=== PATIENT | female | born 1995 | race Caucasian/White ===

== ENCOUNTER 2016-11-09 18:30 | Emergency (ER) | payer BC ==
[2015-03-16 07:36] VITALS: BMI 21.3
[2016-11-09 19:07] LABS: UDS - AMPHET POSITIVE QUAL (NEGATIVE); UDS - BARB NEGATIVE QUAL (NEGATIVE); UDS - BENZO NEGATIVE QUAL (NEGATIVE); UDS - COCAINE POSITIVE QUAL (NEGATIVE); UDS - METH NEGATIVE QUAL (NEGATIVE); UDS - OPIATE NEGATIVE QUAL (NEGATIVE); UDS - PCP NEGATIVE QUAL (NEGATIVE); UDS - THC POSITIVE QUAL (NEGATIVE)
[2016-11-09 19:25] LABS: APPEARANCE CLEAR (CLEAR); BILIRUBIN NEGATIVE (NEGATIVE); COLOR YELLOW (YELLOW); GLUCOSE NEGATIVE (NEGATIVE); KETONE NEGATIVE (NEGATIVE); LEUKOCYTE ESTERASE NEGATIVE (NEGATIVE); NITRITE NEGATIVE (NEGATIVE); PROTEIN NEGATIVE (NEGATIVE); UROBILINOGEN NORMAL (NORMAL)
[2016-11-09 19:28] LABS: BASOPHILS 0.1 % (0.0-2.0); HEMATOCRIT 42.3 % (36.0-48.0); HEMOGLOBIN 14.4 g/dL (12-16); IMMATURE GRANULOCYTES 0.5 % (0-5); LYMPHOCYTES 8.2 % (15-50); MCH 31.2 pg (26.0-34.0); MCV 91.6 fL (80.0-100.0); MEAN PLATELET VOLUME 11.2 fL (7.4-10.4); MONOCYTES 4.7 % (2-11); NEUTROPHILS 84.5 % (40-80); RBC 4.62 10x6/uL (4.00-5.40); RDW 13.7 % (11.5-14.5); WBC 16.9 10x3/uL (4.8-10.8)
[2016-11-09 19:33] LABS: PLATELET COUNT 288 10x3/uL (130-400)
[2016-11-09 19:51] LABS: ALBUMIN 4.1 g/dL (3.4-5.0); ALKALINE PHOSPHATASE 66 U/L (46-116); ALT (SGPT) 20 U/L (10-68); BILIRUBIN - TOTAL 0.46 mg/dL (0.2-1.3); CALC OSMOLALITY 274 mosm/kg (275-300); CALCIUM 8.9 mg/dL (8.5-10.1); CARBON DIOXIDE 27.6 mmol/L (21.0-32.0); CHLORIDE - SERUM 101 mmol/L (98-107); CREATININE - SERUM 0.9 mg/dL (0.6-1.3); GLUCOSE 114 mg/dL (74-106); POTASSIUM - SERUM 3.9 mmol/L (3.5-5.1); PROTEIN - SERUM 8.1 g/dL (6.4-8.2); SODIUM 137 mmol/L (136-145); UREA NITROGEN 12 mg/dL (7-18); eGFR NON AFRICAN AMERICAN 84 mL/min (90-120)
[2016-11-09 20:08] LABS: HCG URINE NEGATIVE (NEGATIVE)
== END 2016-11-09 21:21 | disposition home or self-care (01) ==
LOC: D.ER 18:30
PROVIDERS: Emergency Medicine; Nurse Practitioner Acute Care
DX: F14.10 Cocaine abuse, uncomplicated (principal); F15.10 Other stimulant abuse, uncomplicated; D68.51 Activated protein C resistance; F12.90 Cannabis use, unspecified, uncomplicated